=== PATIENT | female | born 1985 | race Caucasian/White ===

== ENCOUNTER → 2020-06-04 | Outpatient (CLI) | payer OTHER ==
[2020-06-06 01:07] LABS: CHLAMYDIA TRACHOMATIS, NAA Negative (Negative); HPV 16 Negative (Negative); HPV 18 Negative (Negative); HPV OTHER HR TYPES Negative (Negative); NEISSERIA GONORRHOEAE, NAA Negative (Negative)
== END | disposition home or self-care (01) ==
LOC: LAB 18:35 → LAB SHORT 18:35
PROVIDERS: Advanced Practice Midwife
DX: Z34.83 Encounter for supervision of other normal pregnancy, third trimester (principal)
CPT/HCPCS: 87491; 87591; 87624; G0123

== ENCOUNTER → 2020-09-17 | Outpatient (CLI) | payer OTHER ==
[~2020-09-17] MED LIST: BUPR100 PO; IBUP800 PO; ONE A DAY PREN1 EACH PO
[2020-09-17 18:45] LABS: BASOPHILS ABSOLUTE AUTO 0.05 K/mm3 (0.00-0.23); BASOPHILS PERCENT AUTO 0 % (0-2); EOSINOPHILS ABSOLUTE AUTO 0.17 K/mm3 (0.00-0.68); EOSINOPHILS PERCENT AUTO 1 % (0-6); Hematocrit 36.4 % (33.0-51.0); IMMATURE GRAN PERCENT AUTO 2 % (0-1); LYMPHOCYTES ABSOLUTE AUTO 1.75 K/mm3 (0.84-5.20); LYMPHOCYTES PERCENT AUTO 12 % (21-46); MONOCYTES PERCENT AUTO 6 % (4-13); Mean Corpuscular HGB 31.7 pg (26.0-34.0); Mean Corpuscular Volume 96 fL (80-100); Mean Platelet Volume 9.4 fL (9.1-12.4); NEUTROPHILS ABSOLUTE AUTO 11.09 K/mm3 (1.96-9.15); NEUTROPHILS PERCENT AUTO 78 % (41-73); Platelet Count 173 K/mm3 (150-400); RDW Coefficient Variation 13.1 % (11.7-14.2); Red Blood Cell Count 3.79 M/mm3 (3.80-5.20); White Blood Cell Count 14.26 K/mm3 (4.00-11.30)
== END ==
LOC: LAB SHORT 17:40 → LAB 17:40
PROVIDERS: Obstetrics & Gynecology
DX: O09.522 Supervision of elderly multigravida, second trimester (principal)
CPT/HCPCS: 82950; 85025

== ENCOUNTER 2020-12-08 06:10 | Inpatient (IN) | payer OTHER ==
[~2020-12-08] VITALS: Ht 170.2 cm; Wt 86.3 kg
[2020-12-08] MEDS ORDERED: ONE A DAY PREN1 EACH PO (06:25)
[2020-12-08] MEDS ORDERED: BUPR100 PO (06:25)
[2020-12-08 06:46] LABS: BASOPHILS ABSOLUTE AUTO 0.05 K/mm3 (0.00-0.23); BASOPHILS PERCENT AUTO 0 % (0-2); EOSINOPHILS ABSOLUTE AUTO 0.16 K/mm3 (0.00-0.68); EOSINOPHILS PERCENT AUTO 1 % (0-6); Hematocrit 40.5 % (33.0-51.0); Hemoglobin 13.9 g/dL (11.5-16.0); IMMATURE GRAN ABSOLUTE AUTO 0.15 K/mm3 (0.00-0.10); IMMATURE GRAN PERCENT AUTO 1 % (0-1); LYMPHOCYTES ABSOLUTE AUTO 1.85 K/mm3 (0.84-5.20); LYMPHOCYTES PERCENT AUTO 15 % (21-46); MONOCYTES ABSOLUTE AUTO 0.66 K/mm3 (0.16-1.47); MONOCYTES PERCENT AUTO 5 % (4-13); Mean Corpuscular HGB 32.6 pg (26.0-34.0); Mean Corpuscular HGB Conc 34.3 g/dL (31.5-36.5); Mean Corpuscular Volume 95 fL (80-100); Mean Platelet Volume 10.5 fL (9.1-12.4); NEUTROPHILS ABSOLUTE AUTO 9.27 K/mm3 (1.96-9.15); NEUTROPHILS PERCENT AUTO 77 % (41-73); Platelet Count 165 K/mm3 (150-400); RDW Coefficient Variation 13.3 % (11.7-14.2); RDW Standard Deviation 46.4 fL (35.1-46.3); Red Blood Cell Count 4.27 M/mm3 (3.80-5.20); White Blood Cell Count 12.14 K/mm3 (4.00-11.30)
--- NOTE | 2020-12-08 13:11 | NUR ---
SKIN TAG REMOVED OFF RIGHT SIDE BY VAGINA
--- NOTE | 2020-12-08 14:10 | NUR ---
report to leia sharpe
[2020-12-09 05:29] LABS: Hemoglobin 11.2 g/dL (11.5-16.0); Mean Corpuscular HGB 31.6 pg (26.0-34.0); Mean Corpuscular HGB Conc 32.9 g/dL (31.5-36.5); Mean Corpuscular Volume 96 fL (80-100); Mean Platelet Volume 10.5 fL (9.1-12.4); Platelet Count 129 K/mm3 (150-400); RDW Coefficient Variation 13.4 % (11.7-14.2); RDW Standard Deviation 47.2 fL (35.1-46.3); Red Blood Cell Count 3.54 M/mm3 (3.80-5.20)
--- NOTE | 2020-12-09 09:04 | NUR ---
RN/LC ROUNDED TO HELP W/ . 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 TALKED W/ PT ABOUT CORRECT POSITIONING, LATCHING, AND FREQUENCY OF . FURTHER LC OFFERED IF PT DESIRES.
[2020-12-09] MEDS ORDERED: IBUP800 PO (10:44)
--- NOTE | 2020-12-18 16:16 | NUR ---
LATE ENTRY PROTOCOL UTILIZATION L&D ADM DR CASAS12/08/20 @0623 PER EMR
== END 2020-12-09 14:37 | disposition home or self-care (01) | DRG 807 ==
LOC: OBS 06:10 → BC 06:17
PROVIDERS: ADMIT Obstetrics & Gynecology
PROC: 10E0XZZ Delivery of Products of Conception, External Approach (ICD-10-PCS; principal; 2020-12-08)
PROC: 0KQM0ZZ Repair Perineum Muscle, Open Approach (ICD-10-PCS; 2020-12-08)
PROC: 10907ZC Drainage of Amniotic Fluid, Therapeutic from Products of Conception, Via Natural or Artificial Opening (ICD-10-PCS; 2020-12-08)
PROC: 00HU33Z Insertion of Infusion Device into Spinal Canal, Percutaneous Approach (ICD-10-PCS; 2020-12-08)
PROC: 3E0R3BZ Introduction of Anesthetic Agent into Spinal Canal, Percutaneous Approach (ICD-10-PCS; 2020-12-08)
PROC: 3E033VJ Introduction of Other Hormone into Peripheral Vein, Percutaneous Approach (ICD-10-PCS; 2020-12-08)
DX: O76 Abnormality in fetal heart rate and rhythm complicating labor and delivery (principal); Z37.0 Single live birth; O69.81X0 Labor and delivery complicated by cord around neck, without compression, not applicable or unspecified; O70.1 Second degree perineal laceration during delivery; Z20.822 Contact with and (suspected) exposure to COVID-19; Z3A.39 39 weeks gestation of pregnancy; O99.344 Other mental disorders complicating childbirth; F32.9 Major depressive disorder, single episode, unspecified; O99.284 Endocrine, nutritional and metabolic diseases complicating childbirth; E03.9 Hypothyroidism, unspecified
CPT/HCPCS: 36415; 51702; 85025; 85027; 86850; 86900; 86901; A9270; J1885; J2001; J2210; J2590; J3010; J7120

== ENCOUNTER → 2021-03-30 | Outpatient (CLI) | payer OTHER | END | disposition home or self-care (01) | LOC: LAB 11:49 → LAB SHORT 11:49 | DX: D48.5 Neoplasm of uncertain behavior of skin (principal) | CPT/HCPCS: 88305 ==